=== PATIENT | female | born 1985 | race African-American/Black ===

== ENCOUNTER 2022-03-06 12:07 | Emergency (ER) | payer OTHER ==
[~2022-03-06] VITALS: Ht 175.3 cm; Wt 115.9 kg
[~2022-03-06 12:07] MED LIST: NOCURR
[2022-03-06] MEDS ORDERED: IBUP-2070 PO (14:13)
[2022-03-06 14:14] VITALS: BP 165/62
== END 2022-03-06 14:26 | disposition home or self-care (01) ==
LOC: EMS 12:11
DX: S67.191A Crushing injury of left index finger, initial encounter (principal); F12.90 Cannabis use, unspecified, uncomplicated; X58.XXXA Exposure to other specified factors, initial encounter; Y93.89 Activity, other specified; Y92.89 Other specified places as the place of occurrence of the external cause; Y99.8 Other external cause status
CPT/HCPCS: 99283